=== PATIENT | female | born 1990 | race African-American/Black ===

== ENCOUNTER 2016-05-23 09:45 | Emergency (ER) | payer OTHER ==
[~2016-05-23] VITALS: Ht 152.4 cm; Wt 54.4 kg
[2016-05-23 10:33] LABS: BILIRUBIN,URINE NEGATIVE (NEG); GLUCOSE,URINE NEGATIVE (NEG); NITRITE,URINE NEGATIVE (NEG); PROTEIN,URINE NEGATIVE (NEG-TRACE)
[2016-05-23 11:06] LABS: BACTERIA,URINE 0 /HPF (0-FEW); RBC,URINE 0 /HPF (0-2); SQUAMOUS EPITHELIAL CELL,UR MOD /LPF; WBC,URINE OCC /HPF (0-4)
[2016-05-23 11:13] LABS: CALCIUM 9.4 mg/dL (8.5-10.1); CREATININE 0.7 mg/dL (0.6-1.0); GFR 125.5; POTASSIUM 4.1 mmol/L (3.5-5.1)
[2016-05-23 11:19] LABS: ALBUMIN 4.2 g/dL (3.4-5.0); ALBUMIN/GLOBULIN RATIO 1.2 (1.0-1.7); TOTAL BILIRUBIN 0.7 mg/dL (0.2-1.0); TOTAL PROTEIN 7.6 g/dL (6.4-8.2)
[2016-05-23 11:20] LABS: BASO # 0.1 x10^3/uL (0.0-0.2); BASO % 1 % (0-3); EOS % 1 % (0-3); HEMATOCRIT 41.8 % (36.0-47.0); HEMOGLOBIN 13.7 g/dL (12.0-15.5); LYMPH # 1.8 x10^3/uL (1.0-4.8); LYMPH % 29 % (24-48); MEAN CORPUSCULAR HEMOGLOBIN 30 pg (25-35); MEAN CORPUSCULAR HGB CONC 33 g/dL (31-37); MEAN CORPUSCULAR VOLUME 92 fL (79-100); MONO % 4 % (0-9); NEUT % 65 % (31-73); PLATELET COUNT 115 x10^3/uL (140-400); RED BLOOD COUNT 4.53 x10^6/uL (3.50-5.40); RED CELL DISTRIBUTION WIDTH 14.8 % (11.5-14.5); WHITE BLOOD COUNT 6.2 x10^3/uL (4.0-11.0)
[2016-05-23] MEDS ORDERED: HYDR-2666 PO (11:51)
[2016-05-23] MEDS ORDERED: ONDA4TAB10 SL (11:51)
--- NOTE | 2016-05-23 11:51 | PHYS DOC ---
Past Medical History Past Medical History: No Pertinent History Past Surgical History: , Other Additional Past Surgical Histo: RT LEG SURGERY, LEFT EYE SURGERY Alcohol Use: None Drug Use: None Adult General Chief Complaint Chief Complaint: HEMATEMESIS/VOMITING BLOOD HPI HPI 25-year-old female presenting to the emergency department today with abdominal pain nausea and vomiting. She reports pain that started around 3:00 this morning. She has been having her. However it is mildly delayed in timing. She denies any changes in vaginal discharge. Her pain is nonradiating. Pain is moderate. It is intermittent and associated with nausea. No fevers or chills. No specific timing. Review of systems is negative for fevers chills. She denies blood in her stool or vomit. (CC says hematemesis, i clarified, cc is n/v and abd pain) All other review of systems is negative unless otherwise noted in history of present illness. Review of Systems Review of Systems SEE ABOVE. Allergies Allergies Allergies Coded Allergies Type Severity Reaction Last Updated Verified No Known Drug Allergies 07/09/13 No Physical Exam Physical Exam Constitutional: Well developed, well nourished, no acute distress, non-toxic appearance. HENT: Normocephalic, atraumatic, bilateral external ears normal, oropharynx moist, no oral exudates, nose normal. [] Eyes: PERRLA, EOMI, conjunctiva normal, no discharge. [] Neck: Normal range of motion, no tenderness, supple, no stridor. Cardiovascular:Heart rate regular rhythm, no murmur [] Lungs & Thorax: Bilateral breath sounds clear to auscultation Abdomen: Abdomen is soft and mildly tender in the suprapubic region without rebound tenderness or guarding. Negative McBurney's point. Negative Cole sign. No guarding rebound tenderness. Skin: Warm, dry, no erythema, no rash. Back: No tenderness, no CVA tenderness. Extremities: No tenderness, no cyanosis, no clubbing, ROM intact, no edema. [] Neurologic: Alert and oriented X 3, normal motor function, normal sensory function, no focal deficits noted. Psychologic: Affect normal, judgement normal, mood normal. Current Patient Data Vital Signs Vital Signs Date Time Temp Pulse Resp B/P Pulse Ox O2 Delivery O2 Flow Rate FiO2 05/23/16 10:00 98.2 70 23 115/69 100 Room Air 98.2 Lab Values Laboratory Tests Test 05/23/16 09:27 05/23/16 10:14 05/23/16 10:53 POC Urine HCG, Qualitative Hcg negative (Negative) Urine Collection Type Unknown Urine Color Yellow Urine Clarity Clear Urine pH 6.0 Urine Specific [place] 1.025 Urine Protein Negativemg/dL (NEG-TRACE) Urine Glucose (UA) Negativemg/dL (NEG) Urine Ketones (Stick) Negativemg/dL (NEG) Urine Blood Small (NEG) Urine Nitrite Negative (NEG) Urine Bilirubin Negative (NEG) Urine Urobilinogen Dipstick 1.0mg/dL (0.2 mg/dL) Urine Leukocyte Esterase Negative (NEG) Urine RBC 0/HPF (0-2) Urine WBC Occ/HPF (0-4) Urine Squamous Epithelial Cells Mod/LPF Urine Bacteria 0/HPF (0-FEW) Urine Mucus Mod/LPF White Blood Count 6.2x10^3/uL (4.0-11.0) Red Blood Count 4.53x10^6/uL (3.50-5.40) Hemoglobin 13.7g/dL (12.0-15.5) Hematocrit 41.8% (36.0-47.0) Mean Corpuscular Volume 92fL (79-100) Mean Corpuscular Hemoglobin 30pg (25-35) Mean Corpuscular Hemoglobin Concent 33g/dL (31-37) Red Cell Distribution Width 14.8% (11.5-14.5) H Platelet Count 115x10^3/uL (140-400) L Neutrophils (%) (Auto) 65% (31-73) Lymphocytes (%) (Auto) 29% (24-48) Monocytes (%) (Auto) 4% (0-9) Eosinophils (%) (Auto) 1% (0-3) Basophils (%) (Auto) 1% (0-3) Neutrophils # (Auto) 4.0x10^3uL (1.8-7.7) Lymphocytes # (Auto) 1.8x10^3/uL (1.0-4.8) Monocytes # (Auto) 0.3x10^3/uL (0.0-1.1) Eosinophils # (Auto) 0.0x10^3/uL (0.0-0.7) Basophils # (Auto) 0.1x10^3/uL (0.0-0.2) Sodium Level 142mmol/L (136-145) Potassium Level 4.1mmol/L (3.5-5.1) Chloride Level 105mmol/L (98-107) Carbon Dioxide Level 30mmol/L (21-32) Anion Gap 7 (6-14) Blood Urea Nitrogen 13mg/dL (7-20) Creatinine 0.7mg/dL (0.6-1.0) Estimated GFR (Cockcroft-Gault) 125.5 BUN/Creatinine Ratio 19 (6-20) Glucose Level 98mg/dL (70-99) Calcium Level 9.4mg/dL (8.5-10.1) Total Bilirubin 0.7mg/dL (0.2-1.0) Aspartate Amino Transferase (AST) 14U/L (15-37) L Alanine Aminotransferase (ALT) 18U/L (14-59) Alkaline Phosphatase 54U/L (46-116) Total Protein 7.6g/dL (6.4-8.2) Albumin 4.2g/dL (3.4-5.0) Albumin/Globulin Ratio 1.2 (1.0-1.7) Lipase 69U/L (73-393) L Laboratory Tests 05/23/16 10:53 Laboratory Tests 05/23/16 10:53 Microbiology 05/23/16 Wet Prep - Final, Complete EKG EKG [] Radiology/Procedures Radiology/Procedures [] Course & Med Decision Making Course & Med Decision Making Pertinent Labs and Imaging studies reviewed. (See chart for details) [] 25-year-old female presenting to the emergency department with nausea vomiting and abdominal pain. Afebrile. Normal vital signs. Patient's respiratory rate on my examination was 15-16. Abdomen was mildly tender in the suprapubic region. Nontender appendix. Nontender gallbladder. Blood work sent. CBC unremarkable. Urinalysis not suggestive of infection. Urine negative. Chemistry panel otherwise unremarkable. The patient was subsequently discharged home to follow up with her primary care physician over the next 2-3 days or our gynecology team doctor Lefty within 7 days. Dragon Disclaimer Dragon Disclaimer This electronic medical record was generated, in whole or in part, using a voice recognition dictation system. Departure Departure Impression: Primary Impression: Nausea and vomiting Additional Impression: Abdominal pain Disposition: 01 HOME, SELF-CARE Condition: STABLE Referrals: CAROLINA BRITO (PCP) MINDY PEREZ Jr, MD Patient Instructions: Abdominal Pain, Nausea and Vomiting Additional Instructions: Thank you for allowing us to participate in your care today. Followup with your primary care physician in 3 days if your symptoms do not improve. If you do not have a primary care provider you can ask for a list of our primary care providers. Return to the emergency department you have any new or concerning findings. This should be evaluated by the primary care physician and any necessary consulting services for continued management within a few days after discharge. Return to emergency room if you have any new or concerning symptoms including but not limited to fever, chills, nausea, vomiting, intractable pain, any new rashes, chest pain, shortness of air, uncontrolled bleeding, difficulty breathing, and/or vision loss. You may have been prescribed medication that can change in your level of thinking and ability to operate machinery. These medications include hydrocodone and Ativan. Also, Benadryl has been known to do this as well. Be sure to check with your pharmacist and ask if the medications you've prescribed can affect your level of consciousness. I recommend not operating heavy machinery or driving while on medication such as these. Scripts Ondansetron (Zofran Odt)4 Mg Tab.rapdis1 Tab SL PRN Q8HRS PRN NAUSEA #6 TAB Prov:MARLI BOWEN MD 05/23/16 Hydrocodone Bit/Acetaminophen (Hydrocodone-Apap 5-325 )1 Each Tablet1 Tab PO PRN Q6HRS PRN PAIN #15 TAB Be careful as this medication may cause you to be drowsy or tired. Do not drive on this medication. Prov:MARLI BOWEN MD 05/23/16 Problem Qualifiers MARLI BOWEN MD May 23, 2016 11:51
[2016-05-23 12:00] VITALS: BP 115/77
== END 2016-05-23 12:18 | disposition home or self-care (01) ==
LOC: ER 09:45
DX: R10.9 Unspecified abdominal pain (principal); R11.2 Nausea with vomiting, unspecified
CPT/HCPCS: 36415; 80053; 81001; 81025; 83690; 85027; 87491; 87591; 99284; Q0111

== ENCOUNTER 2017-08-18 09:37 | Observation (INO) | payer SELFPAY, OTHER ==
[2017-08-18] MEDS ORDERED: IV RINGERS,LACTATED 1000ML 1,000 ML IV (10:10)
[2017-08-18 10:22] LABS: BILIRUBIN,URINE NEGATIVE (NEG); CLARITY,URINE CLEAR; COLOR,URINE YELLOW; GLUCOSE,URINE NEGATIVE (NEG); NITRITE,URINE NEGATIVE (NEG); PROTEIN,URINE NEGATIVE (NEG-TRACE)
[2017-08-18 10:30] LABS: BARBITURATES NEG (NEG); BENZODIAZEPINES NEG (NEG); CANNABINOIDS POS (NEG); COCAINE NEG (NEG); METHADONE NEG (NEG); OPIATES NEG (NEG); PHENCYCLIDINE NEG (NEG)
[2017-08-18 10:32] LABS: AMPHETAMINE/METHAMPHETAMINE NEG (NEG); ETHANOL, URINE NEG (NEG)
[2017-08-18 11:03] LABS: BACTERIA,URINE FEW /HPF (0-FEW); RBC,URINE 20-40 /HPF (0-2); SQUAMOUS EPITHELIAL CELL,UR MOD /LPF; WBC,URINE OCC /HPF (0-4)
[2017-08-18 12:00] LABS: ADD MAN DIFF? NO
[2017-08-18 12:05] LABS: BASO % 0 % (0-3); EOS % 0 % (0-3); HEMATOCRIT 34.8 % (36.0-47.0); LYMPH # 1.4 x10^3/uL (1.0-4.8); LYMPH % 16 % (24-48); MEAN CORPUSCULAR HEMOGLOBIN 33 pg (25-35); MEAN CORPUSCULAR HGB CONC 35 g/dL (31-37); MEAN CORPUSCULAR VOLUME 95 fL (79-100); MONO # 0.5 x10^3/uL (0.0-1.1); MONO % 5 % (0-9); NEUT % 79 % (31-73); PLATELET COUNT 144 x10^3/uL (140-400); RED BLOOD COUNT 3.65 x10^6/uL (3.50-5.40); WHITE BLOOD COUNT 8.9 x10^3/uL (4.0-11.0)
== END 2017-08-18 16:51 | disposition home or self-care (01) ==
LOC: 3 SO LND 09:37
DX: O46.93 Antepartum hemorrhage, unspecified, third trimester (principal); Z3A.33 33 weeks gestation of pregnancy
CPT/HCPCS: 36415; 76805; 76817; 80307; 81001; 85025; 86850; 86900; 86901; 87086; G0378; G0379

== ENCOUNTER 2018-07-29 13:28 | Emergency (ER) | payer SELFPAY ==
[~2018-07-29] VITALS: Ht 152.4 cm; Wt 49.9 kg
[~2018-07-29 13:28] MED LIST: HYDR-2761 PO; ONDA4TAB10 SL
[2018-07-29 14:01] LABS: BILIRUBIN,URINE NEGATIVE (NEG); CLARITY,URINE CLEAR; COLOR,URINE YELLOW; NITRITE,URINE NEGATIVE (NEG); PH,URINE 7.5; PROTEIN,URINE NEGATIVE (NEG-TRACE)
[2018-07-29 14:06] LABS: HEMATOCRIT 35.6 % (36.0-47.0); RED BLOOD COUNT 3.73 x10^6/uL (3.50-5.40); RED CELL DISTRIBUTION WIDTH 13.1 % (11.5-14.5); WHITE BLOOD COUNT 9.5 x10^3/uL (4.0-11.0)
[2018-07-29 14:20] LABS: BACTERIA,URINE FEW /HPF (0-FEW); RBC,URINE 0 /HPF (0-2); SQUAMOUS EPITHELIAL CELL,UR MANY /LPF; WBC,URINE 0 /HPF (0-4)
--- NOTE | 2018-07-29 15:24 | RAD ---
Examination: Obstetric ultrasound limited HISTORY: History of trauma during , no movement COMPARISON: 08/18/2017. FINDINGS: Single living intrauterine identified with heart rate of 155 bpm LMP 04/17/2018. Clinical age is 14 weeks and 5 days with estimated delivery by LMP 01/22/2019. Ultrasound age is 15 weeks and 2 days with estimated date of delivery by ultrasound 01/18/2019. Biparietal diameter measures 3.19 cm corresponding to 16 weeks and 0 days. Head circumference measures 10.8 cm corresponding to 15 weeks and 1 day. Abdominal circumference measures 9.2 cm corresponding to 15 weeks and 3 days. Femur length measures 1.4 cm corresponding to 14 weeks and 3 days. IMPRESSION: Single living intrauterine with heart rate of 155 bpm. Electronically signed by: Scott Shelton MD (07/29/2018 3:21 PM) [facility]
--- NOTE | 2018-07-29 15:41 | PHYS DOC ---
Past Medical History Past Medical History: No Pertinent History Past Surgical History: , Other Additional Past Surgical Histo: RT LEG SURGERY, LEFT EYE SURGERY Additional Information: STOPPED 4 WKS AGO Alcohol Use: None Drug Use: None Adult General Chief Complaint Chief Complaint: ABDOMINAL PAIN IN [facility] Patient is a 27 year old female who presents with complaining of abdominal pain during . Patient is at 14 weeks of gestation who did not start any care because of moving from old trauma to this area. Patient states she was hit on her abdomen by elevator door when tried to get to the elevator and since then has had pain in left side of her abdomen without vaginal bleeding or discharge and nausea and vomiting. Patient rated her pain as a moderate pain and states she does not fluttering as much as before since yesterday. Review of Systems Review of Systems Constitutional: Denies fever or chills [] Eyes: Denies change in visual acuity, redness, or eye pain [] HENT: Denies nasal congestion or sore throat [] Respiratory: Denies cough or shortness of breath [] Cardiovascular: No additional information not addressed in HPI [] GI: Reports abdominal pain, denies nausea, vomiting, bloody stools or diarrhea [] : Denies dysuria or hematuria [] Musculoskeletal: Denies back pain or joint pain [] Integument: Denies rash or skin lesions [] Neurologic: Denies headache, focal weakness or sensory changes [] Endocrine: Denies polyuria or polydipsia [] All other systems were reviewed and found to be within normal limits, except as documented in this note. Allergies Allergies Allergies Coded Allergies Type Severity Reaction Last Updated Verified No Known Drug Allergies 07/09/13 No Physical Exam Physical Exam Constitutional: Well developed, well nourished, no acute distress, non-toxic appearance. [] HENT: Normocephalic, atraumatic, oropharynx moist. Eyes: PERRLA, EOMI, conjunctiva normal, no discharge. [] Neck: Normal range of motion, no tenderness, supple, no stridor. [] Cardiovascular:Heart rate regular rhythm, no murmur [] Lungs & Thorax: Bilateral breath sounds clear to auscultation [] Abdomen: Bowel sounds normal, soft, no tenderness, no masses, no pulsatile masses, gravid abdomen without tenderness or contusion. [] Skin: Warm, dry, no erythema, no rash. [] Back: No tenderness, no CVA tenderness. [] Extremities: No tenderness, no cyanosis, no clubbing, ROM intact, no edema. [] Neurologic: Alert and oriented X 3, normal motor function, normal sensory function, no focal deficits noted. [] Psychologic: Affect normal, judgement normal, mood normal. [] Current Patient Data Vital Signs Vital Signs Date Time Temp Pulse Resp B/P (MAP) Pulse Ox O2 Delivery O2 Flow Rate FiO2 07/29/18 13:36 98.7 105 18 118/55 (76) 100 Room Air 98.7 Lab Values Laboratory Tests Test 07/29/18 13:32 07/29/18 13:55 Urine Collection Type Unknown Urine Color Yellow Urine Clarity Clear Urine pH 7.5 Urine Specific [place] 1.025 Urine Protein Negative mg/dL (NEG-TRACE) Urine Glucose (UA) Negative mg/dL (NEG) Urine Ketones (Stick) Negative mg/dL (NEG) Urine Blood Negative (NEG) Urine Nitrite Negative (NEG) Urine Bilirubin Negative (NEG) Urine Urobilinogen Dipstick 1.0 mg/dL (0.2 mg/dL) Urine Leukocyte Esterase Negative (NEG) Urine RBC 0 /HPF (0-2) Urine WBC 0 /HPF (0-4) Urine Squamous Epithelial Cells Many /LPF Urine Bacteria Few /HPF (0-FEW) Urine Mucus Mod /LPF White Blood Count 9.5 x10^3/uL (4.0-11.0) Red Blood Count 3.73 x10^6/uL (3.50-5.40) Hemoglobin 12.0 g/dL (12.0-15.5) Hematocrit 35.6 % (36.0-47.0) L Mean Corpuscular Volume 95 fL (79-100) Mean Corpuscular Hemoglobin 32 pg (25-35) Mean Corpuscular Hemoglobin Concent 34 g/dL (31-37) Red Cell Distribution Width 13.1 % (11.5-14.5) Platelet Count 153 x10^3/uL (140-400) Maternal Serum HCG Beta Subunit 40868 mIU/mL (0-5) H Laboratory Tests 07/29/18 13:55 EKG EKG [] Radiology/Procedures Radiology/Procedures [facility] [address] [place] [address] IMAGING REPORT Signed PATIENT: CAPO CARTY ACCOUNT: [id number] : 1990 LOCATION: ER AGE: 27 SEX: F EXAM STATUS: REG ER ORD. PHYSICIAN: RAGHU GARCIA MD REASON: trauma during . LP NOTIFIED PROCEDURE: OB > 14 WKS W/TV Examination: Obstetric ultrasound limited HISTORY: History of trauma during , no movement COMPARISON: 08/18/2017. FINDINGS: Single living intrauterine identified with heart rate of 155 bpm LMP 04/17/2018. Clinical age is 14 weeks and 5 days with estimated delivery by LMP 01/22/2019. Ultrasound age is 15 weeks and 2 days with estimated date of delivery by ultrasound 01/18/2019. Biparietal diameter measures 3.19 cm corresponding to 16 weeks and 0 days. Head circumference measures 10.8 cm corresponding to 15 weeks and 1 day. Abdominal circumference measures 9.2 cm corresponding to 15 weeks and 3 days. Femur length measures 1.4 cm corresponding to 14 weeks and 3 days. IMPRESSION: Single living intrauterine with heart rate of 155 bpm. Electronically signed by: Scott Shelton MD (07/29/2018 3:21 PM) [facility] DICTATED and SIGNED BY: SCOTT SHELTON MD DATE: 07/29/18 1521 Course & Med Decision Making Course & Med Decision Making Pertinent Labs and Imaging studies reviewed. (See chart for details) Evaluation of patient in ER showed 27-year-old female patient at 14 weeks of gestation with complaining of abdominal pain after injury to her abdomen since yesterday. Patient has blood type of A+. Physical exam was unremarkable and patient didn't want to have vaginal exam. Labs and the ultrasound was unremarkable. Patient was advised to follow-up with her SURGICAL SERVICES MANAGER. Patient was in rash to leave the ER to check on her son who was taking to [facility] because of fall. Dragon Disclaimer Dragon Disclaimer This electronic medical record was generated, in whole or in part, using a voice recognition dictation system. Departure Departure Impression: Primary Impression: Abdominal pain in Disposition: HOME, SELF-CARE (at 1539) Condition: STABLE Referrals: CAROLINA BRITO (PCP) OLIVA FRAGA MD Patient Instructions: Abdominal Pain During Additional Instructions: Drink plenty of liquids Follow-up with your SURGICAL SERVICES MANAGER physician in 3-5 days Return to ER if not getting better Problem Qualifiers Primary Impression: Abdominal pain in Trimester: second trimester Qualified Codes: O26.892 - Other specified related conditions, second trimester; R10.9 - Unspecified abdominal pain RAGHU GARCIA MD July 29, 2018 15:41
[2018-07-29 15:42] VITALS: BP 101/62
== END 2018-07-29 15:51 | disposition home or self-care (01) ==
LOC: ER 13:28
DX: O99.89 Other specified diseases and conditions complicating pregnancy, childbirth and the puerperium (principal); R10.9 Unspecified abdominal pain; Z98.890 Other specified postprocedural states; Z3A.14 14 weeks gestation of pregnancy
CPT/HCPCS: 36415; 76805; 76817; 81001; 84702; 85027; 99285-25

== ENCOUNTER 2018-11-16 16:25 | Observation (INO) | payer SELFPAY ==
[2018-11-16 18:38] LABS: BILIRUBIN,URINE NEGATIVE (NEG); CLARITY,URINE CLEAR; COLOR,URINE YELLOW; NITRITE,URINE NEGATIVE (NEG); PROTEIN,URINE NEGATIVE (NEG-TRACE)
[2018-11-16 18:50] LABS: BARBITURATES NEG (NEG); BENZODIAZEPINES NEG (NEG); CANNABINOIDS NEG (NEG); COCAINE NEG (NEG); METHADONE NEG (NEG); OPIATES NEG (NEG); PHENCYCLIDINE NEG (NEG)
[2018-11-16 18:54] LABS: BACTERIA,URINE MODERATE /HPF (0-FEW); RBC,URINE 0 /HPF (0-2); SQUAMOUS EPITHELIAL CELL,UR MOD /LPF
[2018-11-16 18:59] LABS: AMPHETAMINE/METHAMPHETAMINE NEG (NEG)
--- NOTE | 2018-11-16 19:30 | RAD ---
STUDY: Obstetrical ultrasound more than or equal to 14 weeks INDICATION: Bleeding. COMPARISON: Most recently on 07/29/2018 TECHNIQUE: Real-time grayscale and color Doppler sonography of the pelvis utilizing transabdominal technique. FINDINGS: Single live intrauterine with a measured heart rate of 144 bpm. Biparietal diameter of 7.85 cm. Head circumference of 29.1 cm. Abdominal circumference of 25.6 cm. Femur length of 5.7 cm. Estimated weight of 1534 g. Estimated gestational age by sonography of 30 weeks 6 days. Amniotic fluid index of 8.1. Anatomic survey revealing movement, cardiac activity, four-chamber heart, three-vessel cord, fluid within the bladder, visualized stomach and visualized kidneys. Note is made that the study is limited and the spine and brain are poorly characterized. The cervix is not visualized as well. The placenta is posteriorly located and fundal in position. IMPRESSION: Single live intrauterine with an estimated gestational age of 30 weeks 6 days. Though the examination is somewhat limited, no malformation or other complicating features are identified. The estimated weight is in the 36th percentile. Additional measurements/observations as above. Electronically signed by: LAINEY KHALIL MD (11/16/2018 7:09 PM) [facility]
== END 2018-11-16 19:00 | disposition home or self-care (01) ==
LOC: 3 SO LND 16:25
PROVIDERS: ADMIT Obstetrics & Gynecology; ATTEND Obstetrics & Gynecology
DX: O26.853 Spotting complicating pregnancy, third trimester (principal); Z3A.31 31 weeks gestation of pregnancy
CPT/HCPCS: 36415; 76805; 80307; 81001; 86592; 86762; 86850; 86900; 86901; 87086; 87340; G0378; G0379